=== PATIENT | female | born 1995 | race African-American/Black ===

== ENCOUNTER 2016-11-06 14:13 | Emergency (ER) | payer MEDICAID, SELFPAY ==
[~2016-11-06] VITALS: Ht 162.6 cm; Wt 64.9 kg
[2016-11-06 14:14] VITALS: BP 105/57
[2016-11-06] MEDS ORDERED: NAPROXEN 250 MG TAB PO ONE (14:45)
[2016-11-06] MEDS ORDERED: CIPRODEX AS (14:47)
[2016-11-06] MEDS ORDERED: NAPR500T PO (14:47)
== END 2016-11-06 14:57 | disposition home or self-care (01) ==
LOC: M ED 14:51
DX: K02.9 Dental caries, unspecified (principal); H60.312 Diffuse otitis externa, left ear; F17.200 Nicotine dependence, unspecified, uncomplicated

== ENCOUNTER 2017-07-24 19:29 | Emergency (ER) | payer OTHER, SELFPAY ==
[~2017-07-24] VITALS: Ht 162.6 cm; Wt 63.6 kg
[~2017-07-24 19:29] MED LIST: CIPRODEX AS; NAPR500T PO
[2017-07-24 19:31] VITALS: BP 121/62
[2017-07-24] MEDS ORDERED: BACT800T5 PO (20:05)
[2017-07-24] MEDS ORDERED: BACTRIM 160MG/800MG DS TAB PO ONE (20:15)
== END 2017-07-24 20:36 | disposition home or self-care (01) ==
LOC: M ED 20:32
DX: L08.9 Local infection of the skin and subcutaneous tissue, unspecified (principal)

== ENCOUNTER 2018-09-18 10:21 | Emergency (ER) | payer OTHER ==
[~2018-09-18] VITALS: Ht 157.5 cm; Wt 68.2 kg
[~2018-09-18 10:21] MED LIST changes: +BACT800T5 PO; +NAPR-50 PO; -NAPR500T PO
[2018-09-18] MEDS ORDERED: ACET1TAB55 PO (10:27)
[2018-09-18] MEDS ORDERED: AUGM875T28 PO (11:27)
[2018-09-18] MEDS ORDERED: IBUP80TA PO (11:27)
[2018-09-18] MEDS ORDERED: ACETAMINOPHEN TAB 650MG DOSE (2X325MG) PO ONE (11:30)
[2018-09-18] MEDS ORDERED: AUGMENTIN 875 MG TAB PO ONE (11:30)
[2018-09-18] MEDS ORDERED: IBUPROFEN 800 MG TAB PO ONE (11:30)
[2018-09-18 11:37] VITALS: BP 118/72
== END 2018-09-18 11:39 | disposition home or self-care (01) ==
LOC: M ED 10:21
DX: K02.9 Dental caries, unspecified (principal)

== ENCOUNTER 2018-10-18 11:54 | Emergency (ER) | payer OTHER ==
[~2018-10-18] VITALS: Ht 160 cm; Wt 64.9 kg
[~2018-10-18 11:54] MED LIST changes: +ACET1TAB55 PO; +AUGM875T28 PO; +IBUP80TA PO
[2018-10-18] MEDS ORDERED: DEPO150I IM (12:02)
[2018-10-18] MEDS ORDERED: BACT800T5 PO (13:08)
[2018-10-18] MEDS ORDERED: IBUP80TA PO (13:10)
[2018-10-18 13:20] VITALS: BP 101/52
== END 2018-10-18 13:23 | disposition home or self-care (01) ==
LOC: M ED 11:54
DX: L03.317 Cellulitis of buttock (principal)

== ENCOUNTER → 2019-01-11 | Outpatient (REF) | payer OTHER, SELFPAY ==
[~2019-01-11] MED LIST changes: +DEPO150I IM; -NAPR-50 PO; +NAPR-837 PO
[2019-01-11 16:52] LABS: ALT/SGPT 16 U/L (12-78); BILIRUBIN,TOTAL 0.3 MG/DL (0.2-1.0); BLOOD UREA NITROGEN 8 MG/DL (7-18); CALCIUM LEVEL 8.6 MG/DL (8.5-10.1); CARBON DIOXIDE LEVEL 29 MEQ/L (21-32); CHLORIDE LEVEL 108 MEQ/L (98-107); CHOLESTEROL LEVEL 156 MG/DL (<200); CHOLESTEROL RISK RATIO 3.058 (<5); CREATININE FOR GFR 0.77 MG/DL (0.55-1.30); FREE T4 0.95 NG/DL (0.76-1.46); GLOMERULAR FILTRATION RATE > 60.0 (>60); GLUCOSE, FASTING 83 MG/DL (70-100); HDL CHOLESTEROL 51 MG/DL (>40); LDL CHOLESTEROL 89 MG/DL (<100); NON-HDL-C 105 MG/DL; POTASSIUM SERUM 3.9 MEQ/L (3.5-5.1); SODIUM LEVEL 141 MEQ/L (136-145); THYROID STIMULATING HORMONE 0.791 uIU/ML (0.358-3.740); TOTAL PROTEIN 8.4 GM/DL (6.4-8.2); TRIGLYCERIDES LEVEL 80 MG/DL (<150)
[2019-01-11 17:22] LABS: BASO # 0.1 10^3/uL (0.0-0.2); BASO % 0.7 % (0.0-1.0); EOS # 0.1 10^3/uL (0.0-0.50); EOS % 1.3 % (0.0-3.0); LYMPH # 3.8 10^3/uL (1.5-6.5); LYMPH % 44.8 % (24.0-44.0); MEAN CORPUSCULAR HGB CONC 32.5 g/dl (32.0-36.5); MEAN CORPUSCULAR VOLUME 95.5 fl (80.0-96.0); MONO # 0.5 10^3/uL (0.0-0.8); MONO % 5.3 % (0.0-5.0); NEUTROPHILS % 47.7 % (36.0-66.0); PLATELET COUNT, AUTOMATED 272 10^3/uL (150-450); RED BLOOD COUNT 4.19 10^6/uL (4.00-5.40); WHITE BLOOD COUNT 8.5 10^3/uL (4.0-10.0)
[2019-01-11 17:56] LABS: HEMOGLOBIN A1c 5.2 %
[2019-01-11 19:19] LABS: APPEARANCE, URINE HAZY (CLEAR); BACTERIA, URINE AUTO NEGATIVE (NEGATIVE); BILIRUBIN, URINE AUTO NEGATIVE (NEGATIVE); BLOOD, URINE BLOOD 1+ (NEGATIVE); COLOR, URINE YELLOW (YELLOW); GLUCOSE, URINE (UA) AUTO NEGATIVE (NEGATIVE); KETONE, URINE AUTO NEGATIVE (NEGATIVE); LEUKOCYTE ESTERASE, URINE AUTO NEGATIVE (NEGATIVE); MUCUS, URINE MODERATE (NEGATIVE); NITRITE, URINE AUTO NEGATIVE (NEGATIVE); PROTEIN, URINE AUTO NEGATIVE (NEGATIVE); RBC, URINE AUTO 7 /HPF (0-3); SPECIFIC GRAVITY URINE AUTO 1.026 (1.002-1.035); SQUAMOUS EPITHELIAL CELL UR AU 2 /HPF (0-6); WBC, URINE AUTO 2 /HPF (0-3)
[2019-01-11 19:46] LABS: TOTAL 25(OH) VITAMIN D 9.3 NG/ML (30.0-100.0)
== END ==
LOC: M LAB REF 16:23
PROVIDERS: ATTEND Nurse Practitioner Family
DX: Z13.9 Encounter for screening, unspecified (principal)